=== PATIENT | female | born 1940 | race Caucasian/White ===

== ENCOUNTER 2017-05-03 11:06 | Emergency (ER) | payer MEDICARE ==
[~2017-05-03] VITALS: Ht 160 cm; Wt 45.0 kg
[2017-05-03] MEDS ORDERED: OMEP40CA34 PO (11:23)
[2017-05-03] MEDS ORDERED: METF750T2 PO (11:23)
[2017-05-03] MEDS ORDERED: ASPI-1159 PO (11:23)
[2017-05-03] MEDS ORDERED: BENA40TA3 PO (11:23)
[2017-05-03] MEDS ORDERED: METO100T5 PO (11:23)
[2017-05-03] MEDS ORDERED: AMLO10TA80 PO (11:23)
[2017-05-03] MEDS ORDERED: ALEN70TA46 PO (11:23)
[2017-05-03] MEDS ORDERED: PIOG30TA10 PO (11:23)
[2017-05-03] MEDS ORDERED: AROM25 PO (11:23)
[2017-05-03] MEDS ORDERED: ATOR10TA69 PO (11:23)
[2017-05-03] MEDS ORDERED: ACETAMINOPHEN 325MG TABLET PO ONE (12:00)
[2017-05-03 12:48] LABS: BASOPHILS % 0.3 % (0.0-2.0); EOSINOPHILS % 0.1 % (0.0-5.0); HEMATOCRIT. 39.4 % (36.0-48.0); HEMOGLOBIN. 13.4 g/dL (12.0-16.0); LYMPHOCYTES % 14.2 % (20.0-50.0); MEAN CORPUSCULAR HEMOGLOBIN 30.7 pg (28.0-32.0); MEAN CORPUSCULAR VOLUME 90.1 fL (81.0-99.0); MEAN PLATELET VOLUME 8.8 fl (7.4-10.4); MONOCYTES % 7.8 % (2.0-8.0); NEUTROPHILS % 77.6 % (40.0-76.0); PLATELET 168 x1000/uL (130-400); RED BLOOD CELL COUNT 4.37 mill/uL (4.2-5.4); RED CELL DISTRIBUTION WIDTH 14.5 % (11.6-14.6)
[2017-05-03 12:54] LABS: CHLORIDE 107 mEq/L (98-107)
[2017-05-03 13:02] LABS: CARBON DIOXIDE 24 mEq/L (21-32)
[2017-05-03 14:09] VITALS: BP 155/67
== END 2017-05-03 16:10 | disposition home or self-care (01) ==
LOC: ER 11:44 → EDBD 11:44 → ER 16:10
DX: E11.65 Type 2 diabetes mellitus with hyperglycemia (principal); I10 Essential (primary) hypertension; R42 Dizziness and giddiness; R51 Headache; Z88.0 Allergy status to penicillin; Z79.82 Long term (current) use of aspirin; Z79.84 Long term (current) use of oral hypoglycemic drugs
CPT/HCPCS: 36415; 70450; 80053; 82962; 85025; 93005; 99285

== ENCOUNTER 2017-06-23 10:41 | Emergency (ER) | payer MEDICARE ==
[~2017-06-23] VITALS: Ht 157.5 cm; Wt 50.0 kg
[~2017-06-23 10:41] MED LIST: ALEN70TA46 PO; AMLO10TA80 PO; AROM25 PO; ASPI-1159 PO; ATOR10TA69 PO; BENA40TA3 PO; METF750T2 PO; METO100T5 PO; OMEP40CA34 PO; PIOG30TA10 PO
[2017-06-23 11:59] LABS: BASOPHILS % 0.4 % (0.0-2.0); EOSINOPHILS % 3.3 % (0.0-5.0); HEMATOCRIT. 36.7 % (36.0-48.0); HEMOGLOBIN. 12.6 g/dL (12.0-16.0); LYMPHOCYTES % 18.5 % (20.0-50.0); MEAN CORPUSCULAR HEMOGLOBIN 30.7 pg (28.0-32.0); MEAN CORPUSCULAR VOLUME 89.8 fL (81.0-99.0); MEAN PLATELET VOLUME 8.3 fl (7.4-10.4); MONOCYTES % 9.8 % (2.0-8.0); PLATELET 133 x1000/uL (130-400); RED BLOOD CELL COUNT 4.09 mill/uL (4.2-5.4); RED CELL DISTRIBUTION WIDTH 14.4 % (11.6-14.6)
[2017-06-23 12:17] LABS: CARBON DIOXIDE 24 mEq/L (21-32); CHLORIDE 109 mEq/L (98-107); CREATINE KINASE 234 IU/L (26-192); ETHANOL BLOOD < 10 mg/dL; TROPONIN I 0.03 ng/mL (0.00-0.04)
[2017-06-23 13:00] LABS: CLARITY URINE CLEAR (CLEAR); COLOR URINE YELLOW (YELLOW); GLUCOSE URINE NEGATIVE (NEGATIVE); KETONES URINE NEGATIVE (NEGATIVE); LEUKOCYTE ESTERASE URINE NEGATIVE (NEGATIVE); NITRITE URINE NEGATIVE (NEGATIVE); OCCULT BLOOD URINE NEGATIVE (NEGATIVE); PROTEIN URINE 3+ (NEGATIVE); UROBILINOGEN URINE 0.2 E.U./dL (0.2-1.0)
[2017-06-23 13:14] LABS: *AMPHETAMINES SCREEN URINE NEGATIVE (NEGATIVE); *BARBITURATES SCREEN URINE NEGATIVE (NEGATIVE); *BENZODIAZEPINES SCREEN URINE NEGATIVE (NEGATIVE); *COCAINE SCREEN URINE NEGATIVE (NEGATIVE); CANNABINOID URINE SCREEN NEGATIVE (NEGATIVE); METHADONE URINE SCREEN NEGATIVE (NEGATIVE); OPIATES URINE SCREEN NEGATIVE (NEGATIVE); PHENCYCLIDINE URINE SCREEN NEGATIVE (NEGATIVE)
[2017-06-23 15:17] VITALS: BP 148/74
== END 2017-06-23 15:44 | disposition home or self-care (01) ==
LOC: ER 11:02
DX: N39.0 Urinary tract infection, site not specified (principal); I10 Essential (primary) hypertension; E11.9 Type 2 diabetes mellitus without complications; Z88.0 Allergy status to penicillin; Z88.1 Allergy status to other antibiotic agents; Z79.82 Long term (current) use of aspirin
CPT/HCPCS: 36415; 70450; 71010; 80053; 80305; 81001; 82550; 84443; 84484; 85025; 93005; 99285; G0482

== ENCOUNTER 2020-05-14 11:28 | Emergency (ER) | payer MEDICARE ==
[~2020-05-14] VITALS: Ht 160 cm; Wt 50.0 kg
[~2020-05-14 11:28] MED LIST changes: -ALEN70TA46 PO; +ALEN70TA68 PO; -ASPI-1159 PO; +ASPI-1497 PO; -BENA40TA3 PO; +BENA40TA9 PO; -METF750T2 PO; +METF750T46 PO; +METO100T16 PO; -METO100T5 PO; +OMEP40CA12 PO; -OMEP40CA34 PO
[2020-05-14 14:18] LABS: CLARITY URINE CLEAR (CLEAR); COLOR URINE YELLOW (YELLOW); KETONES URINE NEGATIVE (NEGATIVE); LEUKOCYTE ESTERASE URINE NEGATIVE (NEGATIVE); NITRITE URINE NEGATIVE (NEGATIVE); OCCULT BLOOD URINE 1+ (NEGATIVE); PH URINE 7.5 (4.5-8.0); PROTEIN URINE 4+ (NEGATIVE); SPECIFIC GRAVITY URINE 1.015 (1.005-1.030); UROBILINOGEN URINE 0.2 E.U./dL (0.2-1.0)
[2020-05-14 14:54] LABS: BASOPHILS % 0.3 % (0.0-2.0); EOSINOPHILS % 3.8 % (0.0-5.0); HEMATOCRIT. 36.3 % (36.0-48.0); HEMOGLOBIN. 11.9 g/dL (12.0-16.0); LYMPHOCYTES % 17.2 % (20.0-50.0); MEAN CORPUSCULAR HEMOGLOBIN 30.2 pg (28.0-32.0); MEAN CORPUSCULAR VOLUME 92.2 fL (81.0-99.0); MEAN PLATELET VOLUME 8.4 fl (7.4-10.4); NEUTROPHILS % 68.7 % (40.0-76.0); PLATELET 177 x1000/uL (130-400); RED BLOOD CELL COUNT 3.94 mill/uL (4.2-5.4); RED CELL DISTRIBUTION WIDTH 14.1 % (11.6-14.6)
[2020-05-14 15:00] LABS: CHLORIDE 114 mEq/L (98-107)
[2020-05-14 15:08] LABS: PARTIAL THROMBOPLASTIN TIME 33.9 sec (23.4-31.0); PROTHROMBIN TIME 10.9 sec (9.6-11.0)
[2020-05-14] MEDS ORDERED: NITROGLYCERIN OINT 1GM/INCH UDPKT TD ONE (15:30)
[2020-05-14] MEDS ORDERED: LEVOFLOXACIN 750MG PREMIX 150 ML IV ONE (15:30)
[2020-05-14] MEDS ORDERED: FUROSEMIDE 40MG/4ML VIAL IV ONE (15:30)
[2020-05-14] MEDS ORDERED: ASPIRIN 81MG TABLET PO ONE (15:30)
[2020-05-14 17:03] VITALS: BP 154/88
== END 2020-05-14 17:05 | disposition left against medical advice (07) ==
LOC: ER 11:28 → EDBEDREQ 16:39 → ER 17:05 → CANBEDREQ 20:38
DX: I11.0 Hypertensive heart disease with heart failure (principal); I50.9 Heart failure, unspecified; E11.9 Type 2 diabetes mellitus without complications; Z88.0 Allergy status to penicillin; Z88.1 Allergy status to other antibiotic agents; Z88.8 Allergy status to other drugs, medicaments and biological substances; Z79.82 Long term (current) use of aspirin
CPT/HCPCS: 36415; 71045; 74176; 80053; 81003; 83605; 83690; 83880; 84484; 85025; 85610; 85730; 86850; 86900; 86901; 87040; 87086; 93005; 93970; 96374; 99285; J1940